=== PATIENT | female | born 1955 | race Two or more races ===

== ENCOUNTER 2019-07-17 14:07 | Inpatient (IN) | payer OTHER ==
[~2019-07-17] VITALS: Ht 162.6 cm; Wt 64.9 kg
[2019-08-18] MEDS ORDERED: COZAAR100 MG PO (09:33)
[2019-08-18] MEDS ORDERED: NORVASC5 MG PO (09:34)
[2019-08-18] MEDS ORDERED: TOPROL XL50 M1 PO (09:34)
== END 2019-08-24 18:50 | disposition home or self-care (01) | DRG 330 ==
LOC: SURG 08-18 10:15 → EDUNIT# 08-18 10:15 → O/R 08-21 05:00 → SURH 08-21 05:00 → SURG 08-21 07:00 → SURH 08-21 13:18
PROVIDERS: Urology; ADMIT Colon & Rectal Surgery
PROC: 3E0 Administration, Physiological Systems and Anatomical Regions, Introduction (ICD-10-PCS; 2019-08-21)
PROC: 0DTN4ZZ Resection of Sigmoid Colon, Percutaneous Endoscopic Approach (ICD-10-PCS; principal; 2019-08-21 07:00)
PROC: 0DJD8ZZ Inspection of Lower Intestinal Tract, Via Natural or Artificial Opening Endoscopic (ICD-10-PCS; 2019-08-21 07:00)
PROC: 0WHR8YZ Insertion of Other Device into Genitourinary Tract, Via Natural or Artificial Opening Endoscopic (ICD-10-PCS; 2019-08-24)
DX: K57.20 Diverticulitis of large intestine with perforation and abscess without bleeding (principal); N32.1 Vesicointestinal fistula; K63.89 Other specified diseases of intestine; I11.9 Hypertensive heart disease without heart failure

== ENCOUNTER → 2019-07-23 | Outpatient (CLI) | payer OTHER | END | disposition home or self-care (01) | LOC: RX STUDY 08:15 | DX: N82.3 Fistula of vagina to large intestine (principal) ==